=== PATIENT | female | born 1945 | race American Indian/Alaskan Native ===

== ENCOUNTER 2021-01-08 23:09 | Emergency (ER) | payer MEDICARE, OTHER ==
[2021-01-08 23:33] LABS: BILIRUBIN,URINE NEGATIVE (NEGATIVE); GLUCOSE, URINE (UA) NEGATIVE (NEGATIVE); KETONES,URINE (UA) TRACE mg/dL (NEGATIVE); LEUKOCYTE ESTERASE, URINE MODERATE (NEGATIVE); NITRITE,URINE NEGATIVE (NEGATIVE); OCCULT BLOOD,URINE NEGATIVE (NEGATIVE); PROTEIN,URINE NEGATIVE (NEGATIVE); UROBILINOGEN,URINE 0.2 (NORMAL) E.U./dL (NORMAL)
[2021-01-08 23:40] LABS: BASOPHILS % (AUTO) 0.4 %; EOSINOPHILS # (AUTO) 0.1 10^3/uL (0.0-0.7); EOSINOPHILS % (AUTO) 0.5 %; HGB - HEMOGLOBIN 14.4 g/dL (12.0-16.0); LYMPHOCYTES # (AUTO) 1.6 10^3/uL (1.5-3.5); LYMPHOCYTES % (AUTO) 14.5 %; MEAN CORPUSCULAR HEMOGLOBIN 31.2 pg (27.0-31.0); MEAN CORPUSCULAR HGB CONC 33.5 g/dL (32.0-36.0); MEAN CORPUSCULAR VOLUME 93.1 fL (81.0-99.0); MEAN PLATELET VOLUME 9.2 fL (7.9-10.8); MONOCYTES # (AUTO) 0.3 10^3/uL (0.0-1.0); NEUTROPHILS # (AUTO) 8.7 10^3/uL (1.5-6.6); NEUTROPHILS % (AUTO) 81.4 %; PLT - PLATELET COUNT 290 10^3/uL (130-450); RED BLOOD COUNT 4.62 10^6/uL (4.20-5.40); RED CELL DISTRIBUTION WIDTH 13.2 % (12.0-15.0); WHITE BLOOD COUNT 10.7 x10^3/uL (4.8-10.8)
[2021-01-08 23:42] LABS: CLARITY,URINE CLEAR (CLEAR)
[2021-01-08] MEDS ORDERED: FAMOTIDINE 20 MG/2 ML VIAL IVP STA (23:42)
[2021-01-08] MEDS ORDERED: METOCLOPRAMIDE 10 MG/2 ML VIAL IVP STA (23:42)
[2021-01-08 23:43] LABS: BACTERIA,URINE Few /HPF (None Seen); CASTS, URINE 0-2 Hyaline Casts /LPF; RBC,URINE 0-5 /HPF (0-5); SQUAMOUS EPITHELIAL CELL,UR FEW Squamous (<= Few)
[2021-01-08] MEDS ORDERED: SODIUM CHLORIDE 0.9% 1,000 ML IV STA (23:43)
[2021-01-08 23:49] LABS: ALBUMIN 4.1 g/dL (3.2-5.5); ALBUMIN/GLOBULIN RATIO 1.4 (1.0-2.2); BILIRUBIN,TOTAL 0.7 mg/dL (0.2-1.0); CALCIUM 9.4 mg/dL (8.5-10.3); CREATININE 1.1 mg/dL (0.4-1.0); POTASSIUM 3.6 mmol/L (3.5-5.0); TOTAL PROTEIN 7.1 g/dL (6.7-8.2)
--- NOTE | 2021-01-09 00:28 | ED Physician Documentation ---
History of Present Illness - Stated complaint Stated Complaint: VOMITING - Chief complaint Chief Complaint: Abd Pain - History obtained from History obtained from: Patient - Additonal information Additional information: 75-year-old woman with history of high blood pressure, hyperlipidemia, hypothyroidism, atrial tachycardia, presents with stomach upset around 9:30 PM after eating followed by 6 episodes of nausea vomiting starting at 10 PM. This was refractory to 8 mg of oral Zofran which she threw up. Patient denies abdominal pain, diaphoresis, chest pain, shortness of breath, fever, diarrhea. does endorse increased urinary frequency but no dysuria or hematuria. Review of Systems Ten Systems: 10 systems reviewed and negative Constitutional: denies: Fever, Chills Cardiac: denies: Chest pain / pressure, Palpitations Respiratory: denies: Dyspnea, Cough GI: reports: Nausea, Vomiting. 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 - Present Medications Home Medications: Ambulatory Orders Medication Instructions Recorded Confirmed Acetaminophen [Tylenol Extra 500 mg ORAL PRN PRN 01/08/21 01/08/21 Strength] Ascorbic Acid [Vitamin C] 500 mg PO 01/08/21 01/08/21 Atorvastatin [Lipitor] 20 mg ORAL DAILY 01/08/21 01/08/21 Boswellia 307 mg ORAL 01/08/21 Calcium Carbonate [Calcium] 600 mg PO 01/08/21 Erenumab-Aooe [Aimovig 140 mg SQ 01/08/21 Autoinjector] Lactobacillus Combination No.4 1 each PO 01/08/21 [Probiotic] Levothyroxine Sodium [Synthroid] 50 mcg PO 01/08/21 01/08/21 Magnesium Oxide [Magnesium] 400 mg PO 01/08/21 Metoprolol Tartrate [Lopressor] 50 mg ORAL DAILY 01/08/21 01/08/21 Prednisone [Rosemarie] 5 mg ORAL DAILY 01/08/21 01/08/21 Preser Vision 1 unit .ROUTE 01/08/21 Quercetin Dihydrate 500 gm MC 01/08/21 Rimegepant Sulfate [Nurtec Odt] 1 unit ORAL DAILY PRN 01/08/21 01/08/21 Nitrofurantoin [Macrobid] 100 mg PO BID #6 tab 01/09/21 - Allergies Allergies/Adverse Reactions: Allergies Allergy/AdvReac Type Severity Reaction Status Date / Time aspirin Allergy Unknown Verified 01/08/21 23:39 cephalexin Allergy Dizziness Verified 01/08/21 23:39 divalproex sodium Allergy Dizziness Verified 01/08/21 23:39 [From Depakote] doxycycline Allergy Dizziness Verified 01/08/21 23:39 gabapentin [From Gralise] Allergy Dizziness Verified 01/08/21 23:39 levothyroxine Allergy Dizziness Verified 01/08/21 23:39 naproxen [From Aleve] Allergy Unknown Verified 01/08/21 23:39 omega-3 acid ethyl esters Allergy Unknown Verified 01/08/21 23:39 onabotulinumtoxinA Allergy Edema Verified 01/08/21 23:39 [From Botox] thimerosal Allergy Nausea Verified 01/08/21 23:39 verapamil Allergy Emesis Verified 01/08/21 23:39 prochlorperazine AdvReac Nausea Verified 01/08/21 23:20 [From Compazine] dexamethasone ophthalmic Allergy Rash Uncoded 01/08/21 23:39 neomycin and polymycin B Allergy Rash Uncoded 01/08/21 23:39 tumeric Allergy Unknown Uncoded 01/08/21 23:39 - Social History Does the pt smoke?: No Smoking Status: Never smoker Does the pt drink ETOH?: No Does the pt have substance abuse?: No - Immunizations Immunizations are current?: Yes PD ED PE NORMAL - Vitals Vital signs reviewed: Yes - General General: Alert and oriented X 3, No acute distress, Well developed/nourished - HEENT HEENT: Atraumatic, PERRL, EOMI - Neck Neck: Supple, no meningeal sign - Cardiac Cardiac: RRR - Respiratory Respiratory: No respiratory distress, Clear bilaterally - Abdomen Abdomen: Non tender, Non distended - Back Back: No CVA TTP - Derm Derm: Normal color, Warm and dry - Extremities Extremities: No deformity - Neuro Neuro: Alert and oriented X 3 - Psych Psych: Normal mood, Normal affect Results - Vitals Vitals: Vital Signs - 24 hr 01/08/21 01/09/21 23:17 00:34 Temperature 36.1 C L Heart Rate 93 75 Respiratory 16 16 Rate Blood Pressure 115/74 128/79 O2 Saturation 99 98 Oxygen O2 Source Room air - Labs Labs: Laboratory Tests 01/08/21 01/08/21 01/08/21 23:20 23:30 23:30 WBC 10.7 RBC 4.62 Hgb 14.4 Hct 43.0 MCV 93.1 MCH 31.2 H MCHC 33.5 RDW 13.2 Plt Count 290 MPV 9.2 Neut # (Auto) 8.7 H Lymph # (Auto) 1.6 Davison # (Auto) 0.3 Eos # (Auto) 0.1 Baso # (Auto) 0.0 Absolute Nucleated RBC 0.00 Nucleated RBC % 0.0 Sodium 136 Potassium 3.6 Chloride 95 L Carbon Dioxide 29 Anion Gap 12.0 BUN 13 Creatinine 1.1 H Estimated GFR (MDRD) 48 L Glucose 110 H Calcium 9.4 Total Bilirubin 0.7 AST 27 ALT 17 Alkaline Phosphatase 64 Total Protein 7.1 Albumin 4.1 Globulin 3.0 Albumin/Globulin Ratio 1.4 Lipase 20 L Urine Color YELLOW Urine Clarity CLEAR Urine pH 7.0 Ur Specific [place] 1.015 Urine Protein NEGATIVE Urine Glucose (UA) NEGATIVE Urine Ketones TRACE Urine Occult Blood NEGATIVE Urine Nitrite NEGATIVE Urine Bilirubin NEGATIVE Urine Urobilinogen 0.2 (NORMAL) Ur Leukocyte Esterase MODERATE H Urine RBC 0-5 Urine WBC 4-5 Ur Squamous Epith Cells FEW Squamous Urine Bacteria Few Urine Casts 0-2 Hyaline Casts Ur Microscopic Review INDICATED Urine Culture Comments INDICATED PD MEDICAL DECISION MAKING - ED course ED course: symptoms resolved s/p fluids and zofran. offered to obtain CT abdomen however patient declined since she is having no abd pain and feels much better. strict return precautions discussed. antibiotic script given for uti. she will f/u with her pmd. Departure - Departure Disposition: 01 Home, Self Care Clinical Impression: UTI (urinary tract infection), Nausea and vomiting Condition: Good Instructions: ED Nausea Vomiting, ED UTI Cystitis Female Prescriptions: Nitrofurantoin [Macrobid] 100 mg PO BID #6 tab Comments: You are seen in the emergency department for nausea and vomiting and we did not find anything except for a urinary tract infection. Please return to the emergency department you have any new or worsening symptoms or concerns. Take your antibiotics as prescribed and follow-up with your primary doctor.
[2021-01-09 01:15] VITALS: BP 134/81
== END 2021-01-09 01:13 | disposition home or self-care (01) ==
LOC: ED 23:09
DX: N39.0 Urinary tract infection, site not specified (principal); I10 Essential (primary) hypertension
CPT/HCPCS: 36415; 80053; 81001; 83690; 85025; 87086; 93005; 96374; 96375; 99283; 99284; J2765; 81003